=== PATIENT | female | born 1995 | race Caucasian/White ===

== ENCOUNTER 2016-06-22 21:34 | Emergency (ER) | payer OTHER ==
[~2016-06-22] VITALS: Ht 162.6 cm; Wt 62.0 kg
[2016-06-22 21:37] VITALS: TEMP 36.8; Ht 162.6 cm; Wt 62.0 kg
[2016-06-22] MEDS ORDERED: XYLOCAINE 1%/SOD BICARB 20 ML VIAL INFIL ONE (21:45)
[2016-06-22] MEDS ORDERED: BCPILLS PO (22:16)
[2016-06-22] MEDS ORDERED: ACETAMINOPHEN 500 MG TAB PO STA (23:14)
[2016-06-22 23:29] VITALS: BP 118/76; PULSE 73; O2SAT 100
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
== END 2016-06-22 23:31 | disposition home or self-care (01) ==
LOC: EDBD 21:34 → C.EDA 21:36
DX: S01.01XA Laceration without foreign body of scalp, initial encounter (principal); S09.90XA Unspecified injury of head, initial encounter; W22.8XXA Striking against or struck by other objects, initial encounter; Y92.89 Other specified places as the place of occurrence of the external cause; Z88.8 Allergy status to other drugs, medicaments and biological substances